=== PATIENT | male | born 1985 | race Caucasian/White ===

== ENCOUNTER 2023-10-30 08:25 | Inpatient (IN) ==
--- NOTE | 2023-10-30 08:49 | Emergency Department Note ---
ED Provider Note History of Present Illness Chief Complaint: Urinary Symptoms Stated Complaint: ABDOMINAL AND BACK PAIN, BLOOD IN URINE Time Seen by Provider: 10/30/23 08:35 Source: patient Mode of arrival: ambulatory Limitations: no limitations This patient is a 37-year-old male who presents to the emergency department for evaluation of left flank pain and hematuria which started about 8 hours ago. Pain came on suddenly. Pain has been constant. He states the pain radiates from the left back into the abdomen and he has had blood in his urine. He did not take anything at home for pain. He has had 1 episode of vomiting. Denies any history of similar symptoms. Denies any history of kidney stones. Home Medications Medication Instructions Recorded Confirmed Type bupropion HCl 100 mg tablet 0 mg PO HS 10/30/23 10/30/23 History Allergies Allergy/AdvReac Type Severity Reaction Status Date / Time No Known Drug Allergies Allergy Verified 10/30/23 10:46 Past Med/Surg History Problem List (Updated 10/30/23 @ 14:01 by Shalini Cintron PA-C) Nicotine dependence due to vaping non-tobacco product Depression UTI (urinary tract infection) (Acute) Sepsis Hydronephrosis with renal and ureteral calculus obstruction (Acute) Social History Smoking Status: Current every day smoker Tobacco Type: E-cigarettes / Vaping Hx Alcohol Use: Yes Alcohol type: beer Hx Substance Use: No Preferred Language: Czech Communication Ability: Effective Strategies Analyst Required: No Beliefs That Will Affect Care: None Current Living Situation: Alone Feels Safe at Home: Yes Safety Concerns: Feels Safe At This Time Assistive Devices: None Physical Exam Vital Signs Vital Signs - 24 hr 10/30/23 08:32 10/30/23 09:53 10/30/23 10:12 Temperature 36.7 C Temperature Source Temporal Artery Scan Pulse Rate 119 H 113 H Pulse Rate [Apical] 117 H Pulse Rhythm Regular Pulse Strength Normal Respiratory Rate 18 18 Respiratory Effort / Characteristics Non-Labored Spontaneous Non-Labored Spontaneous Respiratory Depth Normal Normal Respiratory Pattern Regular Blood Pressure 126/84 Blood Pressure [Right Arm] 133/95 Blood Pressure Mean 98 Blood Pressure Mean [Right Arm] 107 Blood Pressure Position Sitting Pulse Oximetry 99 99 Oxygen Delivery Method Room Air Room Air Sepsis Recent Fever Within 48 Hours No Sepsis New/Unexplained Change in Mental Status No Sepsis Action Taken by Nursing No Action Required 10/30/23 10:44 10/30/23 10:44 Temperature Temperature Source Pulse Rate 122 H Pulse Rate [Apical] Pulse Rhythm Regular Pulse Strength Respiratory Rate 12 Respiratory Effort / Characteristics Respiratory Depth Respiratory Pattern Blood Pressure Blood Pressure [Right Arm] Blood Pressure Mean Blood Pressure Mean [Right Arm] Blood Pressure Position Pulse Oximetry 98 Oxygen Delivery Method Room Air Room Air Sepsis Recent Fever Within 48 Hours Sepsis New/Unexplained Change in Mental Status Sepsis Action Taken by Nursing VITALS: Vitals are noted on the nurse's note and reviewed by myself. GENERAL: This is a 37-year-old male, in no acute distress, well-developed well- nourished. SKIN: The skin was without rashes. HEART: Regular rate and rhythm without murmurs gallops or rubs. LUNGS: Clear to auscultation bilaterally without wheezes, rales or rhonchi. ABDOMEN: Positive bowel sounds x 4. Tenderness to palpation throughout the left side of the abdomen. No guarding or rebound tenderness. No CVA tenderness. NEURO: Patient was alert and oriented. Course Administered Medications Sodium Chloride (Nss) 1,000 mls @ 100 mls/hr IV .Q10H ZACHARY Stop: 11/29/23 12:57 Last Admin: 10/30/23 13:08 Dose: 100 mls/hr Documented By: MIKE Nicotine (Nicotine 21 Mg/24 Hr Tdsy) 1 patch TD QAM ZACHARY Stop: 11/29/23 12:57 Last Admin: 10/30/23 13:08 Dose: Not Given Documented By: MIKE Discontinued Medications Sodium Chloride (Nss) 1,000 mls @ 999 mls/hr IV .Q1H1M STA Stop: 10/30/23 09:46 Last Infusion: 10/30/23 11:19 Dose: Infused Documented By: Infusion: 10/30/23 09:06 Dose: 999 mls/hr Documented By: Admin: 10/30/23 09:03 Dose: 999 mls/hr Documented By: LAVON Sodium Chloride (Nss) 1,000 mls @ 999 mls/hr IV .Q1H1M ONE Stop: 10/30/23 10:49 Last Infusion: 10/30/23 11:33 Dose: Infused Documented By: Admin: 10/30/23 10:35 Dose: 999 mls/hr Documented By: SANJAY Ceftriaxone Sodium (Rocephin) 2,000 mg in 50 mls @ 100 mls/hr IV NOW STA Stop: 10/30/23 10:37 Last Infusion: 10/30/23 11:19 Dose: Infused Documented By: Admin: 10/30/23 10:39 Dose: 100 mls/hr Documented By: SANJAY Ketorolac Tromethamine (Ketorolac Tromethamine 15 Mg/Ml Vial) 15 mg IV NOW STA Stop: 10/30/23 08:47 Last Admin: 10/30/23 09:09 Dose: 15 mg Documented By: LAVON Morphine Sulfate (Morphine Sulfate 10 Mg/Ml Carp/Vial) 6 mg IV NOW STA Stop: 10/30/23 10:13 Last Admin: 10/30/23 10:35 Dose: 6 mg Documented By: SANJAY Ondansetron HCl (Ondansetron Inj 2 Mg/Ml 2 Ml Vial) 4 mg IV NOW STA Stop: 10/30/23 08:47 Last Admin: 10/30/23 09:14 Dose: 4 mg Documented By: LAVON Medical Decision Making Differential Diagnosis Differential diagnosis includes renal calculus, pyelonephritis, musculoskeletal pain, ruptured AAA, aortic dissection, diverticulitis, perforated viscus, bowel obstruction, biliary pathology, pancreatitis, PE, pneumonia, pneumothorax, trauma, herpes zoster, malignancy, among others. Laboratory Data Attestation: I reviewed the patient's lab results. 10/30/23 08:55 10/30/23 08:55 Lab Results 10/30/23 Range/Units 08:55 WBC 16.28 H (4.8-10.8) K/ul RBC 4.96 (4.70-6.10) M/uL Hgb 15.4 (14.0-18.0) g/dl Hct 41.9 L (42.0-52.0) % MCV 84.5 (80.0-100.0) fL MCH 31.0 (25.0-34.0) pg MCHC 36.8 H (32.0-36.0) g/dL RDW Std Deviation 35.5 L (36.4-46.3) fL RDW Coeff of Sofie 11.8 (11.5-14.5) % Plt Count 322 (130-400) K/uL MPV 10.6 (9.4-12.4) fL Immature Gran % (Auto) 0.4 % Neut % (Auto) 92.2 % Lymph % (Auto) 4.4 % [place] % (Auto) 2.8 % Eos % (Auto) 0.0 % Baso % (Auto) 0.2 % Neut # (Auto) 15.01 H (1.40-6.50) K/uL Lymph # (Auto) 0.72 L (1.20-3.40) K/uL [place] # (Auto) 0.45 (0.11-0.59) K/uL Eos # (Auto) 0.00 (0.00-0.50) K/uL Baso # (Auto) 0.03 (0.00-0.20) K/uL Immature Gran # (Auto) 0.07 (0.01-0.20) K/uL Sodium 137 (136-145) mmol/L Potassium 4.3 (3.5-5.1) mmol/L Chloride 102 (98-107) mmol/L Carbon Dioxide 26 (21-32) mmol/L Anion Gap 9 (3-11) BUN 18 (6-23) mg/dl Creatinine 1.23 (0.6-1.4) mg/dl Est Cr Clr Drug Dosing 81.1 ml/min Est GFR ( Amer) 87.6 ml/min Est GFR (Non-Af Amer) 75.6 ml/min BUN/Creatinine Ratio 14.6 (10-20) Glucose 124 H (70-99(Fasting)) mg/dl Calcium 9.7 (8.6-10.3) mg/dl Total Bilirubin 0.7 (0.2-1.0) mg/dl AST 23 (13-39) U/L ALT 45 (7-52) U/L Alkaline Phosphatase 66 (34-104) U/L Total Protein 7.6 (6.0-8.3) gm/dl Albumin 4.8 (3.4-5.0) gm/dl Globulin 2.8 (2.5-4.0) gm/dl Albumin/Globulin Ratio 1.7 (0.9-2) Urine Color Red Urine Appearance Turbid A (Clear) Urine pH 5.0 (4.5-7.5) Ur Specific [place] 1.025 (1.000-1.030) Urine Protein 2+ H (Negative) Urine Glucose (UA) Negative (Negative) Urine Ketones Negative (Negative) Urine Blood 2+ H (Negative) Urine Nitrite Positive A (Negative) Urine Bilirubin 1+ H (Negative) Urine Urobilinogen Negative (Negative) Ur Leukocyte Esterase 2+ H (Negative) Urine WBC (Auto) 21-50 H (0-5) /hpf Urine RBC (Auto) >20 H (0-2) /hpf U Hyaline Cast (Auto) 3-5 H (0-2) /lpf U Epithel Cells (Auto) 0-2 (0-2) /hpf Urine Bacteria (Auto) None Seen (None Seen) Urine Mucus Present A (None Prsent) Imaging Data Attestation: I personally reviewed and interpreted this imaging study as follows: Radiologist's Impression: Abdomen/Pelvis CT 10/30/23 08:[address] WITHOUT CONTRAST CT DOSE: 926.36 mGy.cm HISTORY: Acute left flank pain with hematuria, nausea and vomiting left flank pain, hematuria TECHNIQUE: Multiaxial CT images of the abdomen and pelvis were performed without contrast. A dose lowering technique was utilized adhering to the principles of ALARA. COMPARISON STUDY: None. FINDINGS: Clear lung bases. No free air. The unenhanced spleen, pancreas and adrenal glands are unremarkable. Gallbladder and liver are within normal limits. Unremarkable kidney. Punctate left renal calculi. Mild left-sided hydroureteronephrosis and perinephric stranding secondary to an obstructing 5 mm calculus within the distal left ureter/ureterovesicular junction. Small fat filled umbilical hernia as. Mild atherosclerosis of the aorta without aneurysm. No lymphadenopathy. No bowel obstruction or bowel wall thickening. Normal appendix. No acute fracture. IMPRESSION: 1. Mild left-sided hydroureteronephrosis secondary to an obstructing 5 mm calculus of the distal left ureter/ureterovesicular junction. 2. Punctate left nephrolithiasis. 3. Normal appendix. ACT 112: Negative or not required by law. The above report was generated using voice recognition software. It may contain grammatical, syntax or spelling errors. Electronically signed by: Gerard Rodriguez M.D. 10/30/2023 9:45 AM MDM Narrative Continuous quality assurance monitor: Order was placed for continuous quality assurance monitor. Patient was placed on the quality assurance monitor. Patient was noted to be in sinus tachycardia at an initial rate of 116 bpm. The patient is a 37-year-old male who presents today complaining of flank pain. Labs revealed a leukocytosis of 16,000. CT of the abdomen/pelvis performed and shows a 5 mm calculus at the left distal ureter/UVJ. Urinalysis does appear infected with positive nitrite, leukocyte esterase and white blood cells. Patient afebrile but persistently tachycardic. He was covered on ceftriaxone, received Toradol, morphine and Zofran for symptoms. He received 2 L of IV fluids. I consulted urology, Dr. Berg who does want to take the patient to the OR for a stent. He recommended medical admission. I discussed with the [facility] service who agreed to evaluate the patient. Impression Hydronephrosis with renal and ureteral calculus obstruction, UTI (urinary tract infection) Discharge Plan Visit Data Chief Complaint: Urinary Symptoms Stated Complaint: ABDOMINAL AND BACK PAIN, BLOOD IN URINE ED Provider: Robert Wagner ED Midlevel Provider: Shalini Cintron Discharge Problem: Hydronephrosis with renal and ureteral calculus obstruction, UTI (urinary tract infection) Patient Disposition: Admitted As Inpatient Discharge Instructions Interventions: ED Discharge Assessment Last Done: 10/30/23 12:42
[2023-10-30] MEDS: SODIUM CHLORIDE 0.9% 1,000 ML IV STA (09:03)
[2023-10-30] MEDS: KETOROLAC TROMETHAMINE 15 MG/ML VIAL IV STA (09:09)
[2023-10-30] MEDS: ONDANSETRON INJ 2 MG/ML 2 ML VIAL IV STA (09:14)
[2023-10-30 09:17] LABS: Hematocrit (blood only) 41.9 % (42.0-52.0); Hemoglobin 15.4 g/dl (14.0-18.0); Mean Corpuscular Hgb Conc 36.8 g/dL (32.0-36.0); Mean Corpuscular Volume 84.5 fL (80.0-100.0); Mean Platelet Volume 10.6 fL (9.4-12.4); Platelet Count 322 K/uL (130-400); RDW Coefficient of Variation 11.8 % (11.5-14.5); RDW Standard Deviation 35.5 fL (36.4-46.3); Red Blood Count 4.96 M/uL (4.70-6.10); White Blood Count 16.28 K/ul (4.8-10.8)
[2023-10-30 09:34] LABS: Est GFR (African American) 87.6 ml/min; Est GFR (Non-African American) 75.6 ml/min; Potassium 4.3 mmol/L (3.5-5.1)
[2023-10-30 09:35] LABS: Albumin Globulin Ratio 1.7 (0.9-2); Albumin Level 4.8 gm/dl (3.4-5.0); BUN Creatinine Ratio 14.6 (10-20); Bilirubin,Total 0.7 mg/dl (0.2-1.0); Calcium 9.7 mg/dl (8.6-10.3); Creatinine Clr Calc Pharmacy 81.1 ml/min; Globulin 2.8 gm/dl (2.5-4.0); Total Protein 7.6 gm/dl (6.0-8.3)
[2023-10-30 09:39] LABS: Appearance Urine Turbid (Clear); Bacteria Urine Automated None Seen (None Seen); Bilirubin Urine 1+ (Negative); Blood Urine 2+ (Negative); Color Urine Red; Epithelial Cell Urine Auto 0-2 /hpf (0-2); Glucose Urine UA Negative (Negative); Ketones Urine Negative (Negative); Leukocyte Esterase Urine 2+ (Negative); Mucus Urine Present (None Prsent); Nitrite Urine Positive (Negative); Protein Urine 2+ (Negative); RBC Urine Automated >20 /hpf (0-2); Specific Gravity Urine 1.025 (1.000-1.030); Urobilinogen Urine Negative (Negative); WBC Urine Automated 21-50 /hpf (0-5)
[2023-10-30 09:43] LABS: Basophils # (auto) 0.03 K/uL (0.00-0.20); Basophils % (auto) 0.2 %; Immature Granulocytes # (auto) 0.07 K/uL (0.01-0.20); Immature Granulocytes % (auto) 0.4 %; Lymphocytes # (auto) 0.72 K/uL (1.20-3.40); Lymphocytes % (auto) 4.4 %; Monocytes # (auto) 0.45 K/uL (0.11-0.59); Monocytes % (auto) 2.8 %; Neutrophils # (auto) 15.01 K/uL (1.40-6.50); Neutrophils % (auto) 92.2 %
--- NOTE | 2023-10-30 09:48 | CT Scan Report ---
ABDOMEN AND PELVIS CT WITHOUT CONTRAST CT DOSE: 926.36 mGy.cm HISTORY: Acute left flank pain with hematuria, nausea and vomiting left flank pain, hematuria TECHNIQUE: Multiaxial CT images of the abdomen and pelvis were performed without contrast. A dose lo wering technique was utilized adhering to the principles of ALARA. COMPARISON STUDY: None. FINDINGS: Clear lung bases. No free air. The unenhanced spleen, pancreas and adrenal glands are unrem arkable. Gallbladder and liver are within normal limits. Unremarkable kidney. Punctate left renal michael culi. Mild left-sided hydroureteronephrosis and perinephric stranding secondary to an obstructing 5 m m calculus within the distal left ureter/ureterovesicular junction. Small fat filled umbilical hernia as. Mild atherosclerosis of the aorta without aneurysm. No lymphadenopathy. No bowel obstruction or bowel wall thickening. Normal appendix. No acute fracture. IMPRESSION: 1. Mild left-sided hydroureteronephrosis secondary to an obstructing 5 mm calculus of the distal left ureter/ureterovesicular junction. 2. Punctate left nephrolithiasis. 3. Normal appendix. ACT 112: Negative or not required by law. The above report was generated using voice recognition software. It may contain grammatical, syntax o r spelling errors. Electronically signed by: Gerard Rodriguez M.D. 10/30/2023 9:45 AM
[2023-10-30] MEDS: SODIUM CHLORIDE 0.9% 1,000 ML IV ONE (10:35)
[2023-10-30] MEDS: MoRPHine SULFATE 10 MG/ML CARP/VIAL IV STA (10:35)
--- NOTE | 2023-10-30 10:38 | Urology Consultation ---
Date of Consultation October 30, 2023 Assessment & Plan (1) Sepsis: (2) UTI (urinary tract infection): (3) Nicotine dependence due to vaping non-tobacco product: (4) Depression: Plan 37 yo M presenting with left flank pain. Afebrile, tachycardic, normotensive. WBC 16, Cr WNL, UA grossly positive but no bacteria. CT scan showed mild left hydro and a 5mm distal left ureteral calculus. Plan to go to the OR for cystoscopy, left retrograde pyelogram and left ureteral stent placement Risk and benefits discussed. Consent obtained Patient marked Patient already received ceftriaxone History of Present Illness History of Present Illness 37 yo M presenting with left flank pain. Afebrile, tachycardic, normotensive. WBC 16, Cr WNL, UA grossly positive but no bacteria. CT scan showed mild left hydro and a 5mm distal left ureteral calculus. Allergies Allergy/AdvReac Type Severity Reaction Status Date / Time No Known Drug Allergies Allergy Verified 10/30/23 10:46 Home Medications Medication Instructions Recorded Confirmed Type bupropion HCl 100 mg tablet 0 mg PO HS 10/30/23 10/30/23 History Patient History Medical History (Updated 10/30/23 @ 14:27 by Elías Molina MD) Nicotine dependence due to vaping non-tobacco product Depression Sepsis Hydronephrosis with renal and ureteral calculus obstruction Social History Smoking Status: Current every day smoker Tobacco Type: E-cigarettes / Vaping Hx Alcohol Use: Yes Alcohol type: beer Hx Substance Use: No Preferred Language: Luxembourger Communication Ability: Effective Customer Service Manager Required: No Beliefs That Will Affect Care: None Current Living Situation: Alone Feels Safe at Home: Yes Safety Concerns: Feels Safe At This Time Assistive Devices: None Results & Data Vital Signs (Past 12 Hours) Vital Signs Temp Pulse Pulse Resp BP BP Pulse Ox 10/30/23 10:12 113 H 10/30/23 09:53 117 H 18 133/95 99 10/30/23 08:32 36.7 C 119 H 18 126/84 99 O2 Del Method 10/30/23 10:12 10/30/23 09:53 Room Air 10/30/23 08:32 Room Air PG Care Time/CCT Total # of Minutes Spent Total Time Spent with Patient: Total time spent is greater than 50% in coordination of care (as documented) at patient's floor/unit and/or counseling patient: Coding Level of Care Code 22738 IN/OBS CONSULT LVL 3,45M Diagnoses Sepsis A41.9 UTI (urinary tract infection) N39.0 Nicotine dependence due to vaping non-tobacco product F17.200 Depression F32.A
[2023-10-30] MEDS: cefTRIAXone SODIUM 2,000 MG/50 ML BAG IV STA (10:39)
--- NOTE | 2023-10-30 11:04 | History & Physical Report ---
Date of Service October 30, 2023 Assessment & Plan (1) Nicotine dependence due to vaping non-tobacco product: (2) Depression: (3) Sepsis: (4) UTI (urinary tract infection): (5) Hydronephrosis with renal and ureteral calculus obstruction: Plan Patient 37-year-old gentleman with obstructing left ureteral calculus and laboratory evidence of urinary tract infection Admit to the [facility] unit Consult urology, anticipate urological intervention today Broad-spectrum antibiotics for presumed UTI Follow urine culture Laboratory studies in a.m. Pain control with morphine and Toradol Antiemetics IV fluids History of Present Illness Chief Complaint: Left abdominal and back pain with nausea and vomiting Primary Care Provider: NO PCP Patient 37-year-old gentleman who woke up this morning with acute onset of left flank pain and abdominal pain. Subsequently he had nausea and 1 episode of emesis. Came to the emergency room for evaluation. In the emergency room laboratory and imaging workup was consistent with left ureteral calculus with hydronephrosis and suspected UTI. Urology was contacted through the ED staff a nd is anticipated that he will go to the operating room for urological procedure. Patient was referred to our service for medical management. Time of my evaluation patient's symptoms had improved with some pain medication and hydration. Antibiotics are being started. Patient reports that he is never had anything like this before. No history of kidney stones. No family history of kidney stones. He denies any fever or chills. He reports feeling well prior to this morning. He states has been eating and drinking well. He denies any previous urinary complaints. He works at [employer] throughout the day does not use any significant alcohol. He reports he takes Wellbutrin for some depression. No other significant medical history. No previous surgical history. Allergies Allergy/AdvReac Type Severity Reaction Status Date / Time No Known Drug Allergies Allergy Verified 10/30/23 10:46 Home Medications Medication Instructions Recorded Confirmed Type bupropion HCl 100 mg tablet 0 mg PO HS 10/30/23 10/30/23 History Past Med/Surg History Problem List Nicotine dependence due to vaping non-tobacco product Depression UTI (urinary tract infection) Sepsis Hydronephrosis with renal and ureteral calculus obstruction Social History Smoking Status: Never smoker Preferred Language: Turkmen Feels Safe at Home: Yes Review of Systems Review of Systems: Pertinent positive and negative review of systems as mentioned in the HPI Physical Exam Physical Exam: Constitutional: Alert, ill in appearance, nontoxic HEENT: Mucous membranes moist. Sclera clear Neck: Soft, no adenopathy Lungs: Clear to auscultation, decreased, no wheezes rales or rhonchi CV: S1-S2, regular, tachycardic Abdomen: Soft, some left sided abdominal tenderness, no guarding, no rigidity, nondistended Extremities: No significant edema Musculoskeletal: No significant joint tenderness Neuro: No focal deficits Psych: Cooperative, normal mood Results & Data Results & Data Vital Signs (Past 12 Hours) Vital Signs Temp Pulse Pulse Resp BP BP Pulse Ox 10/30/23 10:44 122 H 12 98 10/30/23 10:44 10/30/23 10:12 113 H 10/30/23 09:53 117 H 18 133/95 99 10/30/23 08:32 36.7 C 119 H 18 126/84 99 O2 Del Method 10/30/23 10:44 Room Air 10/30/23 10:44 Room Air 10/30/23 10:12 10/30/23 09:53 Room Air 10/30/23 08:32 Room Air Diagnostic Findings Reviewed imaging, laboratory and diagnostic studies. Pertinent findings as below. WBC 16.2, hemoglobin 15.4 CT abdomen report reviewed, obstructing left ureteral stone with hydronephrosis Urinalysis reviewed Code Status & VTE Plan VTE Prophylaxis Plan VTE Prophylaxis will be ordered: Yes
[2023-10-30] MEDS ORDERED: ACETAMINOPHEN 325 MG TAB PO PRN (12:58)
[2023-10-30] MEDS ORDERED: KETOROLAC TROMETHAMINE 15 MG/ML VIAL IV PRN (12:58)
[2023-10-30] MEDS ORDERED: ONDANSETRON INJ 2 MG/ML 2 ML VIAL IV PRN ×2 (12:58→15:14)
[2023-10-30] MEDS ORDERED: MoRPHine SULFATE 4 MG/ML 1 ML CARP\\VIAL IV PRN (12:58)
[2023-10-30] MEDS: NICOTINE 21 MG/24 HR TDSY TD SCH (13:08)
[2023-10-30] MEDS: SODIUM CHLORIDE 0.9% 1,000 ML IV SCH (13:08)
--- NOTE | 2023-10-30 14:27 | Anesthesiology Consultation ---
Date of Service October 30, 2023 Assessment & Plan Chart Review Chart Review: Acceptable Risk for Surgery and Patient NOT seen in Pre Admission Testing Consults Requested none History Surgery Operation Date: 10/30/23 14:00 Proposed Procedures p Cystoscopy(Left) - Apolinar Berg MD Height/Weight Height: 5 ft 8 in Weight: 83.8 kg Allergies Allergy/AdvReac Type Severity Reaction Status Date / Time No Known Drug Allergies Allergy Verified 10/30/23 10:46 Medications Home Medications Medication Instructions Recorded Confirmed Last Taken bupropion HCl 100 mg tablet 0 mg PO HS 10/30/23 10/30/23 10/28/23 Active Medications Generic Name Dose Route Start Last Admin Trade Name Freq PRN Reason Stop Dose Admin Sodium Chloride 1,000 mls @ 100 mls/hr 10/30/23 12:58 10/30/23 13:08 Nss IV 11/29/23 12:57 100 mls/hr .Q10H ZACHARY Administration Nicotine 1 patch 10/30/23 12:58 10/30/23 13:08 Nicotine 21 Mg/24 Hr Tdsy TD 11/29/23 12:57 Not Given QAM ZACHARY Past Medical History Medical History (Updated 10/30/23 @ 14:27 by Elías Molina MD) Nicotine dependence due to vaping non-tobacco product Depression Sepsis Hydronephrosis with renal and ureteral calculus obstruction Social History Smoking Status: Current every day smoker Hx Alcohol Use: Yes Alcohol type: beer alcohol intake frequency: holidays/special occasions only Hx Substance Use: No substance use type: does not use Physical Exam Vital Signs Last Vital Signs Temp 36.6 C 10/30/23 13:00 Pulse 119 H 10/30/23 13:00 Resp 16 10/30/23 13:00 BP 128/64 10/30/23 13:00 Pulse Ox 96 10/30/23 13:00 O2 Del Method Room Air 10/30/23 13:00 Testing Laboratory Results 10/30/23 08:55 10/30/23 08:55 Urine Color Red 10/30/23 08:55 Urine Appearance Turbid (Clear) A 10/30/23 08:55 Urine pH 5.0 (4.5-7.5) 10/30/23 08:55 Ur Specific [place] 1.025 (1.000-1.030) 10/30/23 08:55 Urine Protein 2+ (Negative) H 10/30/23 08:55 Urine Glucose (UA) Negative (Negative) 10/30/23 08:55 Urine Ketones Negative (Negative) 10/30/23 08:55 Urine Nitrite Positive (Negative) A 10/30/23 08:55 Ur Leukocyte Esterase 2+ (Negative) H 10/30/23 08:55 Urine WBC (Auto) 21-50 /hpf (0-5) H 10/30/23 08:55 Urine RBC (Auto) >20 /hpf (0-2) H 10/30/23 08:55 U Hyaline Cast (Auto) 3-5 /lpf (0-2) H 10/30/23 08:55 U Epithel Cells (Auto) 0-2 /hpf (0-2) 10/30/23 08:55 Urine Bacteria (Auto) None Seen (None Seen) 10/30/23 08:55
[2023-10-30] MEDS ORDERED: fentaNYL citrate PF 100 MCG/2 ML VIAL ONE (14:34)
[2023-10-30] MEDS ORDERED: MIDAZOLAM HCL 1 MG/ML 2ML VIAL ONE (14:34)
[2023-10-30] MEDS ORDERED: PROPOFOL IV EMULSION 10 MG/ML 20 ML VIAL IV ONE ×2 (14:36)
[2023-10-30] MEDS ORDERED: ePHEDrine sulfate 50 MG/ML AMP IV PRN (15:14)
[2023-10-30] MEDS ORDERED: ATROPINE SULFATE 0.1 MG/ML 10ML SYR IV PRN (15:14)
[2023-10-30] MEDS ORDERED: fentaNYL citrate PF 100 MCG/2 ML VIAL IV PRN (15:14)
[2023-10-30] MEDS ORDERED: KETAMINE HCL 10MG/ML SYR ONE (15:29)
[2023-10-30] MEDS: DIATRIZOATE MEGLUMINE 30% 100ML VIAL INSTIL ONE (15:33)
--- NOTE | 2023-10-30 15:38 | Operative Report ---
PG Post Operative Report Pre & Post Diagnosis Operation Date: 10/30/23 14:00 Pre-Op Diagnosis: Hydronephrosis with renal and ureteral calculus obstruction Post-Op Diagnosis: Hydronephrosis with renal and ureteral calculus obstruction I identified the patient and participated in the time-out.: Yes Procedure Operation Date: 10/30/23 14:00 Actual Procedures p Cystoscopy, Left Retrograde with radiographic interpretation, left Ureteral Stent Placement(Left) - Apolinar Berg MD Surgeon Apolinar Berg MD Trimmer Operator Three Knife None Estimated Blood Loss 0 Findings See Below Mild left hydronephrosis. Stent in appropriate position. Specimens None Drains 6 [place] by 26 cm left ureteral stent Anesthesia Type MAC Complications none Indications 37-year-old male with a distal left ureteral calculus, with tachycardia and concern for UTI. Description of Procedure After informed consent was obtained, the patient was transported operative suite. MAC anesthesia was induced. The patient was placed in dorsal lithotomy position prepped and draped in a sterile fashion. They received preoperative ceftriaxone for antibiotic prophylaxis. An appropriate surgical timeout was performed. A 22 [place] rigid scope was inserted per urethra into the bladder. Nguyen cystoscopy revealed no stones or lesions. I turned my attention the left ureteral orifice and intubated this with a 5 [place] open-ended catheter. A left retrograde pyelogram was shot which showed mild left hydronephrosis. A sensor wire was advanced into the kidney and confirmed fluoroscopically. A 6 [place] by 26 cm left ureteral stent was deployed with a good proximal coil in the renal pelvis and a good distal coil noted in the bladder. These were confirmed fluoroscopically and under direct visualization, respectively. The bladder was emptied and the scope was removed. This concluded the end of the case. All counts were correct at the end of the case. I was present, scrubbed, and actively participated for the entirety of the procedure. I attest to the content of the Intraoperative Record and any orders documented therein. Any exceptions are noted below.
--- NOTE | 2023-10-30 15:48 | Anesthesiology Progress Note ---
Date of Service October 30, 2023 Anesthesia Post Procedure Vital Signs Vital Signs: Temp Pulse Pulse Pulse Resp BP BP 10/30/23 13:00 36.6 C 119 H 16 128/64 10/30/23 12:00 119 H 15 108/73 10/30/23 11:45 122 H 16 99/64 L 10/30/23 10:44 122 H 12 10/30/23 10:44 10/30/23 10:12 113 H 10/30/23 09:53 117 H 18 133/95 10/30/23 08:32 36.7 C 119 H 18 126/84 Pulse Ox O2 Del Method 10/30/23 13:00 96 Room Air 10/30/23 12:00 98 Room Air 10/30/23 11:45 97 Room Air 10/30/23 10:44 98 Room Air 10/30/23 10:44 Room Air 10/30/23 10:12 10/30/23 09:53 99 Room Air 10/30/23 08:32 99 Room Air Transfer of Care Handoff Completed per policy Notes Mental Status: alert / awake / arousable Patient Amnestic to Procedure: Yes Nausea / Vomiting: adequately controlled Pain: adequately controlled Airway Patency, RR, SpO2: stable & adequate BP & HR: stable & adequate Hydration State: stable & adequate Anesthetic Complications: no major complications apparent and Pt Satisfied with anesthetic care
--- NOTE | 2023-10-30 16:00 | Fluoroscopy Report ---
FL retrograde includes kub CLINICAL HISTORY: LT CYSTO/STENT PLACEMENTleft-sided cystourethrogram COMPARISON STUDY: CT of same day FLUOROSCOPY TIME: 7 seconds FLUOROSCOPY IMAGES: 9 EXPOSURE DOSE: 1.09 mGy FINDINGS: Status post placement of a left ureteral stent, proximal portion appearing to be in satisfa ctory positioning. The distal portion of the stent was not imaged. IMPRESSION: Fluoroscopic assistance as above. ACT 112: Negative or not required by law. Electronically signed by: Gerard Rodriguez M.D. 10/30/2023 3:59 PM
[2023-10-30] MEDS: buPROPion SR 150 MG TABCR PO SCH (19:27)
[2023-10-31 06:28] LABS: Hematocrit (blood only) 39.1 % (42.0-52.0); Hemoglobin 13.8 g/dl (14.0-18.0); Mean Corpuscular Hemoglobin 30.5 pg (25.0-34.0); Mean Corpuscular Hgb Conc 35.3 g/dL (32.0-36.0); Mean Corpuscular Volume 86.3 fL (80.0-100.0); Mean Platelet Volume 10.9 fL (9.4-12.4); Platelet Count 257 K/uL (130-400); RDW Coefficient of Variation 11.9 % (11.5-14.5); RDW Standard Deviation 37.7 fL (36.4-46.3); Red Blood Count 4.53 M/uL (4.70-6.10); White Blood Count 8.98 K/ul (4.8-10.8)
[2023-10-31 06:43] LABS: BUN Creatinine Ratio 11.6 (10-20); Calcium 8.8 mg/dl (8.6-10.3); Creatinine Clr Calc Pharmacy 114.5 ml/min; Est GFR (African American) 119.7 ml/min; Est GFR (Non-African American) 103.3 ml/min
--- NOTE | 2023-10-31 09:41 | Urology Progress Note ---
Date of Service October 31, 2023 Assessment & Plan (1) Left ureteral stone: Plan: 37-year-old male admitted for left flank pain secondary to 5 mm left UVJ stone Patient postop day 1 status post left ureteral stent placement with Dr. Berg Afebrile, labs reviewed - creatinine 0.95, WBC 8.98 Urine culture pending, currently on IV Ceftriaxone Tolerating left ureteral stent with minimal bother Okay to d/c from perspective when medically stable Recommend d/c with course of PO antibiotics, Tamsulosin, prn Pyridium and prn pain medication for stent management Expected clinical course reviewed, all questions answered Will arrange outpatient follow-up with our service to arrange definitive stone treatment Admission and Anticipated Discharge Date Admission Date: October 30, 2023 Subjective Patient seen and examined at bedside this morning He is awake and sitting up in bed Notes occasional discomfort in his left side Voiding without difficulty, hematuria clearing postprocedure Denies fever, chills, nausea or vomiting Review of Systems Constitutional: as per Subjective / HPI Genitourinary: + as per Subjective / HPI Physical Exam Constitutional: well developed and well nourished; no acute distress Respiratory: normal respiratory effort; no respiratory distress and no labored breathing Gastrointestinal (Abdomen): Inspection/Auscultation: abdomen normal to inspection Musculoskeletal: Head/Neck/Chest: normocephalic Neurologic: moves all extremities and awake Psychiatric: Orientation: alert and oriented x 3 Results & Data Vital Signs (Past 12 Hours) Vital Signs Temp Pulse Resp BP BP Pulse Ox O2 Del Method 10/31/23 07:42 36.6 C 97 H 16 131/82 98 Room Air 10/31/23 03:06 36.6 C 100 H 16 125/82 98 Room Air 10/30/23 23:04 36.8 C 97 H 16 118/71 98 Room Air PG Care Time/CCT Total # of Minutes Spent Total Time Spent with Patient: Total time spent is greater than 50% in coordination of care (as documented) at patient's floor/unit and/or counseling patient: Coding Level of Care Code 01701 SUB INP/OBS CARE 2/35MIN Diagnoses Left ureteral stone N20.1
[2023-10-31] MEDS: cefTRIAXone SODIUM 2,000 MG/50 ML BAG IV SCH (11:04)
--- NOTE | 2023-10-31 11:49 | Hospitalist Progress Note ---
Date of Service October 31, 2023 Assessment & Plan (1) Nicotine dependence due to vaping non-tobacco product: (2) Depression: (3) Sepsis: (4) UTI (urinary tract infection): (5) Hydronephrosis with renal and ureteral calculus obstruction: Plan Patient 37-year-old gentleman with obstructing left ureteral calculus and laboratory evidence of urinary tract infection LEFT URETERAL STONE WITH HYDRONEPHROSIS 10/29 s/p ureteral stent placement doing well after procedure renal function preserved cleared for discharge by Urology service d/c on Tamsulosin, Pyridium PRN ff up with Urologist in 1 week URINARY TRACT INFECTION Urine culture: pending on Ceftri IV afebrile discharge on Cefdinir 300mg BID x 10 days will ff up final Urine Culture result plan of care discussed with patient in detail and at length all questions answered he is understanding, agreeable, comfortable with the plan of care Admission and Anticipated Discharge Date Admission Date: October 30, 2023 Subjective ff up for ureteral stone, etc seen resting in bed, comfortable states he feels better overall no abdominal, flank, back pain minimal dysuria, mild blood tinged urine- resolving no fever/chills no chest pain, dyspnea, palpitations, dizziness no other new symptoms states he is ready and would like to be discharged today Review of Systems Review of Systems: all noted and negative except for above Physical Exam Physical Exam: General- oriented x 3, not in distress, speaks in sentences with no effort or accessory muscle use Eyes- anicteric Neck- no JVD Lungs- clear breath sounds bilaterally, no crackles Heart- normal rate, regular rhythm; no murmurs Abdomen- normal bowel sounds, nondistended, soft, nontender no CVA tenderness Extremities- no pretibial edema, no calf tenderness Neuro- alert, oriented x 3; no gross focal neurologic deficits Skin- warm & dry Results & Data Results & Data Vital Signs (Past 12 Hours) Vital Signs Temp Pulse Resp BP BP Pulse Ox O2 Del Method 10/31/23 11:44 36.8 C 101 H 16 119/81 98 Room Air 10/31/23 07:42 36.6 C 97 H 16 131/82 98 Room Air 10/31/23 03:06 36.6 C 100 H 16 125/82 98 Room Air all noted and reviewed including below
--- NOTE | 2023-10-31 11:57 | Discharge Summary ---
Discharge Summary Date of Service October 31, 2023 Notes For Next Care Provider Medication Changes From Visit Cefdinir- antibiotic for urinary tract infection Tamsulosin- to promote passage of stone Pyridium- as needed for bladder spasms Admission HPI Per Admitting Provider Patient 37-year-old gentleman who woke up this morning with acute onset of left flank pain and abdominal pain. Subsequently he had nausea and 1 episode of emesis. Came to the emergency room for evaluation. In the emergency room laboratory and imaging workup was consistent with left ureteral calculus with h ydronephrosis and suspected UTI. Urology was contacted through the ED staff and is anticipated that he will go to the operating room for urological procedure. Patient was referred to our service for medical management. Time of my evaluation patient's symptoms had improved with some pain medication and hydration. Antibiotics are being started. Patient reports that he is never had anything like this before. No history of kidney stones. No family history of kidney stones. He denies any fever or chills. He reports feeling well prior to this morning. He states has been eating and drinking well. He denies any previous urinary complaints. He works at [employer] throughout the day does not use any significant alcohol. He reports he takes Wellbutrin for some depression. No other significant medical history. No previous surgical history. Admission Exam Per Admitting Provider Constitutional: Alert, ill in appearance, nontoxic HEENT: Mucous membranes moist. Sclera clear Neck: Soft, no adenopathy Lungs: Clear to auscultation, decreased, no wheezes rales or rhonchi CV: S1-S2, regular, tachycardic Abdomen: Soft, some left sided abdominal tenderness, no guarding, no rigidity, nondistended Extremities: No significant edema Musculoskeletal: No significant joint tenderness Neuro: No focal deficits Psych: Cooperative, normal mood Principal Dx & Hospital Course #1 = Principal Diagnosis (1) Nicotine dependence due to vaping non-tobacco product: (2) Depression: (3) Sepsis: (4) UTI (urinary tract infection): (5) Hydronephrosis with renal and ureteral calculus obstruction: Plan Patient 37-year-old gentleman with obstructing left ureteral calculus and laboratory evidence of urinary tract infection LEFT URETERAL STONE WITH HYDRONEPHROSIS 10/29 s/p ureteral stent placement doing well after procedure renal function preserved cleared for discharge by Urology service d/c on Tamsulosin, Pyridium PRN ff up with Urologist in 1 week URINARY TRACT INFECTION Urine culture: pending on Ceftri IV afebrile discharge on Cefdinir 300mg BID x 10 days will ff up final Urine Culture result plan of care discussed with patient in detail and at length all questions answered he is understanding, agreeable, comfortable with the plan of care Discharge Exam General- oriented x 3, not in distress, speaks in sentences with no effort or accessory muscle use Eyes- anicteric Neck- no JVD Lungs- clear breath sounds bilaterally, no crackles Heart- normal rate, regular rhythm; no murmurs Abdomen- normal bowel sounds, nondistended, soft, nontender no CVA tenderness Extremities- no pretibial edema, no calf tenderness Neuro- alert, oriented x 3; no gross focal neurologic deficits Skin- warm & dry Updated Medication List Medication Instructions Recorded Confirmed Type bupropion HCl 100 mg tablet 0 mg PO HS 10/30/23 10/30/23 History cefdinir 300 mg capsule 300 mg PO BID 9 days #18 caps 10/31/23 Rx phenazopyridine 100 mg tablet 100 mg PO TID PRN bladder spasms 10/31/23 Rx (Pyridium) #14 tabs tamsulosin 0.4 mg capsule 0.4 mg PO DAILY #14 caps 10/31/23 Rx Hospital Stay Data Consultations 10/30/23 12:58 Consult Urology Routine Procedures Performed Operation Date: 10/30/23 14:00 Actual Procedures p Cystoscopy, Left Retrograde, Left Ureteral Stent Placement(Left) - Apolinar Berg MD Diagnostic Imagining Performed Laboratory Results WBC 8.98 K/ul (4.8-10.8) 10/31/23 05:45 RBC 4.53 M/uL (4.70-6.10) L 10/31/23 05:45 Hgb 13.8 g/dl (14.0-18.0) L 10/31/23 05:45 Hct 39.1 % (42.0-52.0) L 10/31/23 05:45 MCV 86.3 fL (80.0-100.0) 10/31/23 05:45 MCH 30.5 pg (25.0-34.0) 10/31/23 05:45 MCHC 35.3 g/dL (32.0-36.0) 10/31/23 05:45 RDW Std Deviation 37.7 fL (36.4-46.3) 10/31/23 05:45 RDW Coeff of Sofie 11.9 % (11.5-14.5) 10/31/23 05:45 Plt Count 257 K/uL (130-400) 10/31/23 05:45 MPV 10.9 fL (9.4-12.4) 10/31/23 05:45 Immature Gran % (Auto) 0.4 % 10/30/23 08:55 Neut % (Auto) 92.2 % 10/30/23 08:55 Lymph % (Auto) 4.4 % 10/30/23 08:55 Amador % (Auto) 2.8 % 10/30/23 08:55 Eos % (Auto) 0.0 % 10/30/23 08:55 Baso % (Auto) 0.2 % 10/30/23 08:55 Neut # (Auto) 15.01 K/uL (1.40-6.50) H 10/30/23 08:55 Lymph # (Auto) 0.72 K/uL (1.20-3.40) L 10/30/23 08:55 Amador # (Auto) 0.45 K/uL (0.11-0.59) 10/30/23 08:55 Eos # (Auto) 0.00 K/uL (0.00-0.50) 10/30/23 08:55 Baso # (Auto) 0.03 K/uL (0.00-0.20) 10/30/23 08:55 Immature Gran # (Auto) 0.07 K/uL (0.01-0.20) 10/30/23 08:55 Sodium 141 mmol/L (136-145) 10/31/23 05:45 Potassium 4.0 mmol/L (3.5-5.1) 10/31/23 05:45 Chloride 107 mmol/L (98-107) 10/31/23 05:45 Carbon Dioxide 28 mmol/L (21-32) 10/31/23 05:45 Anion Gap 6 (3-11) 10/31/23 05:45 BUN 11 mg/dl (6-23) 10/31/23 05:45 Creatinine 0.95 mg/dl (0.6-1.4) 10/31/23 05:45 Est Cr Clr Drug Dosing 114.5 ml/min 10/31/23 05:45 Est GFR ( Amer) 119.7 ml/min 10/31/23 05:45 Est GFR (Non-Af Amer) 103.3 ml/min 10/31/23 05:45 BUN/Creatinine Ratio 11.6 (10-20) 10/31/23 05:45 Glucose 88 mg/dl (70-99(Fasting)) 10/31/23 05:45 Calcium 8.8 mg/dl (8.6-10.3) 10/31/23 05:45 Total Bilirubin 0.7 mg/dl (0.2-1.0) 10/30/23 08:55 AST 23 U/L (13-39) 10/30/23 08:55 ALT 45 U/L (7-52) 10/30/23 08:55 Alkaline Phosphatase 66 U/L (34-104) 10/30/23 08:55 Total Protein 7.6 gm/dl (6.0-8.3) 10/30/23 08:55 Albumin 4.8 gm/dl (3.4-5.0) 10/30/23 08:55 Globulin 2.8 gm/dl (2.5-4.0) 10/30/23 08:55 Albumin/Globulin Ratio 1.7 (0.9-2) 10/30/23 08:55 Urine Color Red 10/30/23 08:55 Urine Appearance Turbid (Clear) A 10/30/23 08:55 Urine pH 5.0 (4.5-7.5) 10/30/23 08:55 Ur Specific [place] 1.025 (1.000-1.030) 10/30/23 08:55 Urine Protein 2+ (Negative) H 10/30/23 08:55 Urine Glucose (UA) Negative (Negative) 10/30/23 08:55 Urine Ketones Negative (Negative) 10/30/23 08:55 Urine Blood 2+ (Negative) H 10/30/23 08:55 Urine Nitrite Positive (Negative) A 10/30/23 08:55 Urine Bilirubin 1+ (Negative) H 10/30/23 08:55 Urine Urobilinogen Negative (Negative) 10/30/23 08:55 Ur Leukocyte Esterase 2+ (Negative) H 10/30/23 08:55 Urine WBC (Auto) 21-50 /hpf (0-5) H 10/30/23 08:55 Urine RBC (Auto) >20 /hpf (0-2) H 10/30/23 08:55 U Hyaline Cast (Auto) 3-5 /lpf (0-2) H 10/30/23 08:55 U Epithel Cells (Auto) 0-2 /hpf (0-2) 10/30/23 08:55 Urine Bacteria (Auto) None Seen (None Seen) 10/30/23 08:55 Urine Mucus Present (None Prsent) A 10/30/23 08:55 Impressions Retrograde Pyelogram 10/30/23 00:00 FL retrograde includes kub CLINICAL HISTORY: LT CYSTO/STENT PLACEMENTleft-sided cystourethrogram COMPARISON STUDY: CT of same day FLUOROSCOPY TIME: 7 seconds FLUOROSCOPY IMAGES: 9 EXPOSURE DOSE: 1.09 mGy FINDINGS: Status post placement of a left ureteral stent, proximal portion appearing to be in satisfactory positioning. The distal portion of the stent was not imaged. IMPRESSION: Fluoroscopic assistance as above. ACT 112: Negative or not required by law. Electronically signed by: Gerard Rodriguez M.D. 10/30/2023 3:59 PM Abdomen/Pelvis CT 10/30/23 08:[address] WITHOUT CONTRAST CT DOSE: 926.36 mGy.cm HISTORY: Acute left flank pain with hematuria, nausea and vomiting left flank pain, hematuria TECHNIQUE: Multiaxial CT images of the abdomen and pelvis were performed without contrast. A dose lowering technique was utilized adhering to the principles of ALARA. COMPARISON STUDY: None. FINDINGS: Clear lung bases. No free air. The unenhanced spleen, pancreas and adrenal glands are unremarkable. Gallbladder and liver are within normal limits. Unremarkable kidney. Punctate left renal calculi. Mild left-sided hydroureteronephrosis and perinephric stranding secondary to an obstructing 5 mm calculus within the distal left ureter/ureterovesicular junction. Small fat filled umbilical hernia as. Mild atherosclerosis of the aorta without aneurysm. No lymphadenopathy. No bowel obstruction or bowel wall thickening. Normal appendix. No acute fracture. IMPRESSION: 1. Mild left-sided hydroureteronephrosis secondary to an obstructing 5 mm calculus of the distal left ureter/ureterovesicular junction. 2. Punctate left nephrolithiasis. 3. Normal appendix. ACT 112: Negative or not required by law. The above report was generated using voice recognition software. It may contain grammatical, syntax or spelling errors. Electronically signed by: Gerard Rodriguez M.D. 10/30/2023 9:45 AM Pending Results Patient Have Any Pending Studies at Discharge: Yes Discharge Instructions Given to Patient (Per Discharging Provider) PLEASE REFER TO YOUR NEW MEDICATION LIST AND FOLLOW INSTRUCTIONS CAREFULLY. YOUR NEW MEDICATIONS INCLUDE: Cefdinir- antibiotic for urinary tract infection Tamsulosin- to promote passage of stone Pyridium- as needed for bladder spasms Take a probiotic for at least 2 weeks. PLEASE CALL YOUR PRIMARY CARE PHYSICIAN OR RETURN TO THE ER IF WITH WORSENING OF SYMPTOMS, INCLUDING increasing pain, problems with urination, fever/chills, abdominal/back pain, etc FOLLOW UP WITH PRIMARY CARE PHYSICIAN IN 1 WEEK. FOLLOW UP WITH UROLOGIST DR. BERG IN 1 WEEK. Total Time Total Time Spent Total Time Spent (In Minutes): 45 minutes
== END 2023-10-31 13:56 | disposition home or self-care (01) | DRG 854 ==
LOC: ED 08:25 → 3N 10:54 → SUATTDRO 10:54 → 3N 12:42